=== PATIENT | male | born 1940 | race Caucasian/White ===

== ENCOUNTER 2017-01-06 13:00 | Emergency (ER) | payer MEDICARE, BC ==
[~2017-01-06] VITALS: Ht 157.5 cm; Wt 56.7 kg
[2017-01-06 13:03] VITALS: Ht 157.5 cm; Wt 56.7 kg
[2017-01-06] MEDS ORDERED: SODIUM CHLORIDE 0.9% 1L BAG IV* STA (13:08)
[2017-01-06] MEDS ORDERED: CEFEPIME 2GM/50 ML (PMX) 50 ML IVPB STA (13:08)
[2017-01-06 13:28] LABS: ADD SCAN DIFF NO
[2017-01-06] MEDS ORDERED: VANCOMYCIN 1 GM (PMX) 250 ML IVPB ONE (13:30)
[2017-01-06 13:33] LABS: BASOPHIL # 0.1 10^3/ul (0.0-0.1); BASOPHILS % 0.3 % (0.0-2.0); EOSINOPHILS # 0.2 10^3/ul (0.0-0.5); EOSINOPHILS % 1.1 % (0.0-7.0); HEMATOCRIT 31.4 % (42.0-52.0); HEMOGLOBIN 10.1 g/dl (14.0-18.0); LYMPHOCYTES # 0.9 10^3/ul (0.8-2.9); LYMPHOCYTES % 4.9 % (15.0-51.0); MEAN CORPUSCULAR HEMOGLOBIN 27.4 pg (29.0-33.0); MEAN CORPUSCULAR HGB CONC 32.2 g/dl (32.0-37.0); MEAN CORPUSCULAR VOLUME 85.1 fl (82.0-101.0); MEAN PLATELET VOLUME 9.1 fl (7.4-10.4); MONOCYTE # 1.4 10^3/ul (0.3-0.9); MONOCYTES % 7.3 % (0.0-11.0); NEUTROPHIL # 15.8 10^3/ul (1.6-7.5); NEUTROPHILS % 84.5 % (39.0-77.0); PLATELET COUNT 329 10^3/UL (140-415); RED BLOOD COUNT 3.69 10^6/ul (4.70-6.10); RED CELL DISTRIBUTION WIDTH 17.9 % (11.5-14.5); WHITE BLOOD COUNT 18.7 10^3/ul (4.8-10.8)
[2017-01-06] MEDS ORDERED: ACETAMINOPHEN 500 MG TAB PO STA (13:33)
--- NOTE | 2017-01-06 13:38 | ERA ---
ER Documentation Chief Complaint Date/Time DATE: 01/06/17 TIME: 13:32 Chief Complaint from dialysis c/o fever, chills HPI 76-year-old male who presents with fever and chills from dialysis. The patient completed dialysis today he gets dialysis Tuesday. He has baseline dementia. The patient had external fixation of a right ankle fracture approximately 2 weeks ago. He has an external fixation device in place. Family member reports chills over the past 24-48 hours. No other symptoms been noted. No cough no rhinorrhea no congestion, no shortness of breath no abdominal pain nausea vomiting or diarrhea, no dysuria. Remainder of HPI is limited. ROS All systems reviewed and are negative except as per history of present illness. Medications Home Meds Reported Medications Sevelamer Carbonate* (Renvela*) 800 Mg Tablet, 0.8 GM PO WITH MEALS, TAB 01/06/17 Vit B Complex & C No.13/Fa/D3 (NEPHROCAPS QT TABLET) 1 Each Tab.rapdis, 1 EACH PO DAILY 01/06/17 Aspirin* (Aspirin* Chew) 81 Mg Tab.chew, 81 MG PO DAILY, TAB.CHEW 01/06/17 Nifedipine* (Nifedipine ER*) 60 Mg Tablet.sa, 60 MG PO DAILY, TAB.SA 01/06/17 Metoprolol Tartrate* (Lopressor*) 25 Mg Tab, 25 MG PO BID, #60 TAB 01/06/17 Allergies Allergies: Coded Allergies: No Known Allergies (Verified Allergy, Unknown, 01/06/17) PMhx/Soc History of Surgery: Yes (ORIF R leg 2 wks ago) Anesthesia Reaction: No Hx Neurological Disorder: No Hx Respiratory Disorders: No Hx Cardiac Disorders: Yes (htn, high cholesterol) Hx Psychiatric Problems: No Hx Miscellaneous Medical Probl: Yes (DM) Hx Alcohol Use: No Hx Substance Use: No Hx Tobacco Use: No Smoking Status: Never smoker FmHx Family History: No diabetes Physical Exam Vitals Vital Signs Date Time Temp Pulse Resp B/P Pulse Ox O2 Delivery O2 Flow Rate FiO2 01/06/17 16:30 98.9 78 18 129/60 100 Nasal Cannula 2.0 01/06/17 14:37 100.6 103 17 145/63 96 Nasal Cannula 2.0 01/06/17 13:03 102.9 114 20 174/78 99 Physical Exam General: Elderly male, no significant distress, warm to touch Head: Normocephalic, atraumatic. Eyes: Pupils equally reactive, EOM intact ENT: Dry mucous membranes Neck: Supple, no lymphadenopathy Respiratory: Lungs clear bilaterally, no distress Cardiovascular: Tachycardia, no murmurs, rubs, or gallops Abdominal: Soft, non-tender, non-distended, no peritoneal signs : Deferred MSK: No edema, no unilateral swelling, 4/5 strength diffusely. External fixation device to the right lower extremity, dressing is clean dry and intact. No drainage or discharge is noted. Neurologic: Alert and oriented to person which appears to be at baseline, moving all extremities, normal speech, no focal weakness, no cerebellar signs Skin: No rash Psych: Normal mood Result Diagram: 01/06/17 1315 01/06/17 1315 Results 24 hrs Laboratory Tests Test 01/06/17 13:15 01/06/17 15:40 White Blood Count 18.710^3/ul Red Blood Count 3.6910^6/ul Hemoglobin 10.1g/dl Hematocrit 31.4% Mean Corpuscular Volume 85.1fl Mean Corpuscular Hemoglobin 27.4pg Mean Corpuscular Hemoglobin Concent 32.2g/dl Red Cell Distribution Width 17.9% Platelet Count 38598^3/UL Mean Platelet Volume 9.1fl Neutrophils % 84.5% Lymphocytes % 4.9% Monocytes % 7.3% Eosinophils % 1.1% Basophils % 0.3% Nucleated Red Blood Cells % 0.0/100WBC Neutrophils # 15.810^3/ul Lymphocytes # 0.910^3/ul Monocytes # 1.410^3/ul Eosinophils # 0.210^3/ul Basophils # 0.110^3/ul Nucleated Red Blood Cells # 0.010^3/ul Erythrocyte Sedimentation Rate 120mm/Hr Prothrombin Time 15.0Sec Prothrombin Time Ratio 1.2 INR International Normalized Ratio 1.17 Activated Partial Thromboplast Time 41.8Sec Sodium Level 145mmol/L Potassium Level 5.0mmol/L Chloride Level 93mmol/L Carbon Dioxide Level 35mmol/L Anion Gap 22 Blood Urea Nitrogen 24mg/dl Creatinine 4.90mg/dl Glucose Level 175mg/dl Lactic Acid Level 2.4mmol/L 0.9mmol/L Calcium Level 9.9mg/dl Total Bilirubin 0.4mg/dl Direct Bilirubin 0.00mg/dl Indirect Bilirubin 0.4mg/dl Aspartate Amino Transf (AST/SGOT) 21IU/L Alanine Aminotransferase (ALT/SGPT) 17IU/L Alkaline Phosphatase 240IU/L Troponin I 0.022ng/ml C-Reactive Protein 33.5mg/dl Total Protein 8.5g/dl Albumin 4.0g/dl Globulin 4.50g/dl Albumin/Globulin Ratio 0.88 Current Medications Medications (Trade) Dose Ordered Sig/Misbah Route PRN Reason Start Time Stop Time Status Last Admin Dose Admin Sodium Chloride 1760 ml 1,760 ml BOLUS OVER 2 HOURS STAT IV* 01/06/17 13:08 01/06/17 13:11 DC 01/06/17 13:24 Cefepime HCl 50 ml @ 100 mls/hr ONCE STAT IVPB 01/06/17 13:08 01/06/17 13:37 DC 01/06/17 13:24 Vancomycin HCl (Vancocin) 250 ml @ 125 mls/hr ONCE ONCE IVPB 01/06/17 13:30 01/06/17 15:29 DC 01/06/17 13:54 Acetaminophen (Tylenol Tab) 1,000 mg ONCE STAT PO 01/06/17 13:33 01/06/17 13:46 DC 01/06/17 13:50 Morphine Sulfate (morphine) 4 mg ONCE STAT IV 01/06/17 14:45 01/06/17 14:46 DC 01/06/17 15:04 Ondansetron HCl (Zofran Inj) 4 mg ONCE STAT IV 01/06/17 14:45 01/06/17 14:46 DC 01/06/17 15:03 Procedures/MDM EKG, MONITORS, & DIAGNOSTIC IMAGING: Chest x-ray: I reviewed and interpreted a 1 view of the chest Mediastinum: No enlargement Cardiac silhouette: No cardiomegaly Airspace: Clear lung hi bilaterally without evidence of pneumothorax Bones: No evidence of fracture X-ray right ankle: radiology read IMPRESSION: 1. External fixation device. 2. Deformity of the ankle with large portion of the talus not visualized. 3. Atherosclerosis. RPTAT: QQ EKG: I reviewed and interpreted a 12-lead EKG. Rhythm: Slight sinus tachycardia Ectopy: None Intervals: No abnormalities ST segments: No elevations or depressions T waves: No contiguous inversions LAB INTERPRETATION: Leukocytosis, elevated ESR CRP, lactic acid of 2.4 improving to 0.9. Chronic renal insufficiency and failure MEDICAL DECISION MAKING: The patient presents with chills, fever for approximately 24-48 hours. No other symptoms have been noted. Consider possible influenza versus viral syndrome. Consider possible UTI. Patient has no evidence of pneumonia, consider possible sepsis given the patient is a dialysis patient, raises the concern for MRSA. The patient also recently had surgery approximately 2 weeks ago. The patient's external fixation device appears to be intact, consider osteomyelitis, the dressing appears to be clean dry and intact. The patient surgical intervention was in an outside hospital. The patient will benefit from fluid resuscitation, blood cultures, broad-spectrum antibiotics, inpatient hospitalization. Influenza testing was also initiated. ER COURSE: The patient has evidence of lactic acidosis that is clear. He has leukocytosis. Unfortunately I do not have a source at this time. Is not consistent with meningitis. Given potential for postoperative infection the patient may benefit from transfer to [facility] for the patient had his surgery. I was able to speak to the patient's surgeon Dr. Martinez who agrees. The patient will be transferred to [facility]. The patient was informed. He is hemodynamically stable. No indication for central line or pressors. I kept the patient and/or family informed of laboratory and diagnostic imaging results throughout the emergency room course. DISPOSITION PLAN: Transfer to [facility] for further management of sepsis CONSULTATION: Accepting care team and consultations: I discussed the current laboratory data, diagnostic imaging and emergency care provided. Admitting team: Dr. Martin is the accepting hospitalist, we spoke on the phone Admitting team indication: Insurance directed Consulting services: Orthopedic surgeon Dr. Martinez Sepsis Documentation: Patient's infectious symptoms have not stabilized and the patient is at risk of rapid decompensation. The patient will be admitted for careful hydration, antibiotic therapy, and infectious source control. SEVERE SEPSIS CRITERIA: Infectious source: Possible postoperative infection of right lower extremity End organ damage indicated by: [Lactate > 2.0 mmol/L SEPSIS MANAGEMENT Time of recognition of severe sepsis/septic shock: Upon arrival 3 HOUR BUNDLE Blood cultures x 2 before broad-spectrum antibiotics: Yes 30 ml/kg NS bolus Completed Initial lactate 2.4 Repeat lactate 0.9 SEPTIC SHOCK ASSESSMENT: No lactic acid > 4.0 No persistent hypotension (SBP < 90 or 40 mmHg drop, MAP < 65) despite 30 mL/kg IV fluid bolus VOLUME REASSESSMENT FOR SEPTIC SHOCK: Reevaluation Time: 1630 Temperature of 98.9 heart rate 78 respiratory rate 18 blood pressure 129/60, pulse ox 100% on 2 L Heart Regular rate & rhythm Lungs No crackles Skin Warm & dry Cap Refill Less than 2 seconds Peripheral pulses Radially present PERSISTENT HYPOTENSION TREATMENT: Comfort care No Central line Not Required Vasopressor started Not required I considered further perfusion assessment with CVP measurement, SCVO2, bedside ultrasound volume assessment, passive leg raise, trial of further fluid bolus. And proceeded with 30 ml/kg fluid bolus of NSS, broad spectrum antbiotics, and admission. CRITICAL CARE Critical care time 35 minutes Emergent fluid management while maintaining close respiratory support. Provision of immediate and broad-spectrum antibiotic therapy. Simultaneous assessment for possible sources in order to direct targeted therapy. Consideration for invasive and chemical support to prevent cardiopulmonary collapse. Critical care time is independent of procedures performed. Departure Diagnosis: Primary Impression: End stage renal disease on dialysis Additional Impression: Severe sepsis Condition: Stable PERLITA EL MD Jan 06, 2017 13:38
[2017-01-06 13:44] LABS: INR 1.17; PT RATIO 1.2
[2017-01-06 13:45] LABS: PARTIAL THROMBOPLASTIN TIME 41.8 Sec (25.0-35.0)
[2017-01-06 13:46] LABS: BILIRUBIN,INDIRECT 0.4 mg/dl (0-1.1); BILIRUBIN,TOTAL 0.4 mg/dl (0.2-1.3); CREATININE 4.9 mg/dl (0.61-1.24)
[2017-01-06 13:47] LABS: ALBUMIN/GLOBULIN RATIO 0.88; CALCIUM 9.9 mg/dl (8.4-10.2); TOTAL PROTEIN 8.5 g/dl (6.1-8.1)
[2017-01-06 13:58] LABS: TROPONIN-I 0.022 ng/ml (0.00-0.12)
[2017-01-06] MEDS ORDERED: METO-448 PO (14:08)
[2017-01-06] MEDS ORDERED: NIFE60TA7 PO (14:09)
[2017-01-06] MEDS ORDERED: ASPI81TA3 PO (14:09)
[2017-01-06] MEDS ORDERED: VIT1TAB.4 PO (14:10)
[2017-01-06] MEDS ORDERED: SEVE800T7 PO (14:10)
[2017-01-06 14:43] LABS: C-REACTIVE PROTEIN 33.5 mg/dl (0.0-0.9)
[2017-01-06] MEDS ORDERED: ONDANSETRON 4 MG INJ IV STA (14:45)
[2017-01-06] MEDS ORDERED: morphine 4 MG/ML VIAL IV STA (14:45)
--- NOTE | 2017-01-06 16:50 | RADRPT ---
PROCEDURE: XR Right Ankle. CLINICAL INDICATION: Right ankle pain. TECHNIQUE: 3 views. Frontal, lateral, and oblique. COMPARISON: None. FINDINGS: There is an external fixation device. There is deformity of the ankle with a large portion of the t alus not visualized. Vascular calcifications are present consistent with atherosclerosis. There is no obvious lytic lesion. IMPRESSION: 1. External fixation device. 2. Deformity of the ankle with large portion of the talus not visualized. 3. Atherosclerosis. RPTAT: QQ .Adolph Pastor MD, MD Date Time Electronically viewed and signed by .Adolph Pastor MD, MD on 01/06/2017 16:50 .R/
[2017-01-06 20:13] VITALS: BP 151/63; PULSE 94; RESP 18; TEMP 100.3
--- NOTE | 2017-01-07 18:47 | RADRPT ---
PROCEDURE: XR Chest. CLINICAL INDICATION: Possible Sepsis TECHNIQUE: Single frontal view of the chest was obtained COMPARISON: None FINDINGS: The heart and mediastinum are within normal limits. There is a patchy infiltrate in the left lower lobe. The lungs are otherwise clear. There is no pleural effusion or pneumothorax. IMPRESSION: Patchy infiltrate in the left lower lobe. Otherwise, no significant abnormalities are identified. RPTAT:AAJJ Physician Jostin Date Time Electronically viewed and signed by Dorian Rasmussen Physician on 01/06/2017 14:28 YARELI/
== END 2017-01-06 21:00 | disposition short-term general hospital (02) ==
LOC: E/R 13:00
DX: N18.6 End stage renal disease (principal); I12.0 Hypertensive chronic kidney disease with stage 5 chronic kidney disease or end stage renal disease; R65.20 Severe sepsis without septic shock; A41.9 Sepsis, unspecified organism; Z79.82 Long term (current) use of aspirin; Z99.2 Dependence on renal dialysis
CPT/HCPCS: 71010; 73610; 80053; 83605; 84484; 85025; 85610; 85651; 85730; 86140; 87040; 87400; 93005; J0692; J2270; J2405; J3370; J7030; 36415; 96365; 96366; 96368; 96375